=== PATIENT | female | born 1990 | race Caucasian/White ===

== ENCOUNTER 2018-08-05 20:17 | Emergency (ER) | payer SELFPAY ==
[~2018-08-05] VITALS: Ht 167.6 cm; Wt 104.0 kg
[2018-08-05] MEDS ORDERED: KEFLEX500 M1 PO (20:29)
[2018-08-05 21:08] LABS: IMMATURE GRANULOCYTES 0.3 % (0.0-5.0); MEAN CELL VOLUME 86.9 fL CALC (80.0-100.0); MEAN CORPUSCULAR HGB 28.8 pG CALC (26.0-32.0); MEAN CORPUSCULAR HGB CONC 33.2 g/L CALC (32.0-36.0); NEUT# 5.08 thou/uL (2.00-7.15); RED BLOOD COUNT 4.44 mill/uL (4.20-5.60); RED CELL DISTRI WIDTH 12.8 % (11.5-15.5)
[2018-08-05 21:11] LABS: HEMATOCRIT 38.6 % (37.0-47.0); HEMOGLOBIN 12.8 g/dl (12.0-16.0)
[2018-08-05 21:14] LABS: URINE BILIRUBIN - DIPSTICK NEGATIVE (NEGATIVE); URINE BLOOD DIPSTICK TRACE-INTACT (NEGATIVE); URINE COLOR YELLOW; URINE GLUCOSE - DIPSTICK NEGATIVE (NEGATIVE); URINE KETONE NEGATIVE (NEGATIVE); URINE LEUK ESTERASE NEGATIVE (NEGATIVE); URINE NITRITE - DIPSTICK NEGATIVE (Negative); URINE PROTEIN - DIPSTICK NEGATIVE (NEG-TRACE); URINE SPECIFIC GRAVITY 1.015
[2018-08-05 21:34] LABS: ALBUMIN 4.8 g/dL (3.2-5.0); ALKALINE PHOSPHATASE 62 u/l (38-126); AMYLASE 51 u/l (30-110); ANION GAP 15 (6-22 (CALC)); BILIRUBIN, TOTAL 0.3 mg/dL (0.0-1.4); BUN 11 mg/dL (7-17); BUN/CREATININE RATIO 16 (12-20 (CALC)); CARBON DIOXIDE 23 mmol/l (22-30); CHLORIDE 106 mmol/l (95-108); CREATININE 0.7 mg/dL (0.5-1.0); GFR > 60 ML/MIN (>=60 (CALC)); GFR FOR AFR.AMER. > 60 ML/MIN (>=60 (CALC)); LIPASE 122 u/l (23-300); POTASSIUM 3.9 mmol/l (3.5-5.1); SGOT/AST 28 u/l (14-36); SODIUM 141 mmol/l (137-146); TOTAL PROTEIN 7.8 g/dL (6.3-8.2)
[2018-08-05] MEDS ORDERED: IBUPROFEN600 MG PO (23:17)
[2018-08-05] MEDS ORDERED: TAMSULOSIN0.4 MG PO (23:17)
[2018-08-05] MEDS ORDERED: LORTAB 5/3255 MG PO (23:17)
[2018-08-05 23:30] VITALS: BP 106/68
== END 2018-08-05 23:30 | disposition home or self-care (01) | DRG 694 ==
LOC: ED 20:17
PROVIDERS: Family Medicine
DX: N13.2 Hydronephrosis with renal and ureteral calculous obstruction (principal)

== ENCOUNTER 2022-03-24 18:07 | Emergency (ER) | payer OTHER ==
[~2022-03-24] VITALS: Ht 167.6 cm; Wt 100.4 kg
[2022-03-24] VITALS (9 sets, daily range): BP systolic 104–119; BP diastolic 64–88
[~2022-03-24 18:07] MED LIST: IBUPROFEN600 MG PO; KEFLEX500 M1 PO; LORTAB 5/3255 MG PO; TAMSULOSIN0.4 MG PO
[2022-03-24 19:03] LABS: URINE BILIRUBIN - DIPSTICK NEGATIVE (NEGATIVE); URINE BLOOD DIPSTICK NEGATIVE (NEGATIVE); URINE COLOR YELLOW; URINE GLUCOSE - DIPSTICK NEGATIVE (NEGATIVE); URINE KETONE 15 mg/dL (NEGATIVE); URINE LEUK ESTERASE NEGATIVE (NEGATIVE); URINE PH 7.5 (4.5-8.0); URINE PROTEIN - DIPSTICK NEGATIVE (NEG-TRACE)
[2022-03-24 19:03] LABS: HEMATOCRIT 37.7 % (37.0-47.0); HEMOGLOBIN 12.7 g/dl (12.0-16.0); IMMATURE GRANULOCYTES 0.1 % (0.0-5.0); MEAN CELL VOLUME 86.7 fL CALC (80.0-100.0); MEAN CORPUSCULAR HGB 29.2 pG CALC (26.0-32.0); MEAN CORPUSCULAR HGB CONC 33.7 g/dL CAL (32.0-36.0); NEUT# 6.41 thou/uL (2.00-7.15); RED BLOOD COUNT 4.35 mill/uL (4.20-5.60); RED CELL DISTRI WIDTH 12.6 % (11.5-15.5)
[2022-03-24 19:09] LABS: URINE NITRITE - DIPSTICK NEGATIVE (Negative)
[2022-03-24 19:12] LABS: ALBUMIN 4.7 g/dL (3.2-5.0); ALKALINE PHOSPHATASE 73 u/l (38-126); ANION GAP 18 (6-22 (CALC)); BUN 8 mg/dL (7-17); BUN/CREATININE RATIO 11 (12-20 (CALC)); CARBON DIOXIDE 21 mmol/l (22-30); CHLORIDE 104 mmol/l (95-108); CREATININE 0.7 mg/dL (0.5-1.0); GFR FOR AFR.AMER. > 60 ML/MIN (>=60 (CALC)); GFR OTHER RACES > 60 ML/MIN (>=60 (CALC)); POTASSIUM 3.9 mmol/l (3.5-5.1); SGOT/AST 28 u/l (14-36); SODIUM 139 mmol/l (137-146); TOTAL PROTEIN 8.1 g/dL (6.3-8.2)
[2022-03-24 19:13] LABS: BILIRUBIN, TOTAL 0.5 mg/dL (0.0-1.4)
[2022-03-24] MEDS ORDERED: ONDANSETRON4 MG PO (19:51)
== END 2022-03-24 20:25 | disposition home or self-care (01) | DRG 866 ==
LOC: ED 18:07
PROVIDERS: Nurse Practitioner
DX: B34.9 Viral infection, unspecified (principal); R11.2 Nausea with vomiting, unspecified; R19.7 Diarrhea, unspecified

== ENCOUNTER 2024-04-23 00:36 | Emergency (ER) | payer OTHER ==
[~2024-04-23] VITALS: Ht 167.6 cm; Wt 98.0 kg
[~2024-04-23 00:36] MED LIST changes: +ONDANSETRON4 MG PO; +TORADOL PO; +ZOFRAN4 MG/TAB PO
[2024-04-23] MEDS ORDERED: BENZONATATE 200 MG/CAP PO ONE (02:20)
[2024-04-23] MEDS ORDERED: DEXAMETHASONE 2 MG/TAB TAB PO ONE (02:20)
[2024-04-23] MEDS ORDERED: DECADRON4 MG PO (02:21)
[2024-04-23] MEDS ORDERED: BENZONATATE200 MG PO (02:21)
[2024-04-23 02:45] VITALS: BP 118/80
== END 2024-04-23 02:45 | disposition home or self-care (01) | DRG 866 ==
LOC: ED 00:36
DX: B34.9 Viral infection, unspecified (principal)